=== PATIENT | female | born 1945 | race Caucasian/White ===

== ENCOUNTER → 2017-06-19 | Outpatient (CLI) | payer OTHER | LOC: HEART 5 07:53 | DX: I20.9 Angina pectoris, unspecified (principal); I10 Essential (primary) hypertension; R94.39 Abnormal result of other cardiovascular function study | CPT/HCPCS: 78452; 93306; A9502; J2785 ==

== ENCOUNTER → 2021-01-25 | Outpatient (CLI) | payer OTHER ==
[~2021-01-25] MED LIST: ASPIRIN EC81 MG PO; CITRACAL SOFT1 EACH PO; CLINDAMYCIN HC300 MG PO; CYCLOBENZAPRINE10 MG PO; DAILY VITAMIN1 EAC2 PO; HYDROCODON-ACE1 EAC4 PO; ISOSORBIDE MONO30 MG PO; LEVOFLOXACIN500 MG PO; LEVOTHYROXINE75 MCG PO; METOPROLOL TART25 MG PO; NITROGLYCERIN0.4 MG SL; SIMVASTATIN10 MG PO; VEGETARIAN GLU750 MG PO; ZOFRAN4 MG PO
== END ==
LOC: HEART 5 10:36
DX: I47.2 Ventricular tachycardia (principal); I51.7 Cardiomegaly
CPT/HCPCS: 93306

== ENCOUNTER → 2021-04-10 | Outpatient (CLI) | payer OTHER ==
[2021-04-10 08:22] LABS: HEMOGLOBIN 14.8 gm/dl (12.3-15.3); RED BLOOD COUNT 4.73 M/UL (4.00-5.10); WHITE BLOOD COUNT 6.1 K/UL (4.5-11.0)
== END ==
LOC: LAB 07:43
PROVIDERS: Internal Medicine Cardiovascular Disease
DX: Z45.010 Encounter for checking and testing of cardiac pacemaker pulse generator [battery] (principal); I49.5 Sick sinus syndrome; R00.2 Palpitations
CPT/HCPCS: 36415; 71046; 80048; 85025

== ENCOUNTER → 2021-04-11 | Outpatient (CLI) | payer OTHER | LOC: CATH 07:00 | DX: Z45.010 Encounter for checking and testing of cardiac pacemaker pulse generator [battery] (principal); I49.5 Sick sinus syndrome; I47.2 Ventricular tachycardia; E03.9 Hypothyroidism, unspecified; E11.9 Type 2 diabetes mellitus without complications; Z87.891 Personal history of nicotine dependence; Z79.82 Long term (current) use of aspirin; Z20.822 Contact with and (suspected) exposure to COVID-19; Z79.899 Other long term (current) drug therapy; Z90.710 Acquired absence of both cervix and uterus | CPT/HCPCS: 33213; 99152; 99153; C1785; J2250; J3010; J3370; J7040; J7050; U0002 ==